=== PATIENT | male | born 1955 | race Caucasian/White ===

== ENCOUNTER → 2017-05-02 | Outpatient (CLI) | payer BC ==
[2016-05-08 15:41] VITALS: BP 183/80
--- NOTE | 2017-05-02 10:42 | RAD ---
Indication: Left renal malignant tumor removed in 2017. Technique: Grayscale, color Doppler and spectral waveform images of the abdomen obtained. Comparison: CT from 05/07/2016 Findings: Visualized pancreas within normal limits. The mid aortic diameter measures 1.9 cm and is within normal limits. Mild diffuse atherosclerotic disease of the abdominal aorta are noted. IVC is patent. No gallstones. No pericholecystic fluid or gallbladder wall thickening. Main portal vein is patent with hepatopedal flow. CBD measures 5 mm and is within normal limits. The right kidney measures 12 cm in length without evidence of hydronephrosis. The left kidney measures 10 cm in length without evidence of hydronephrosis. No left renal mass. The spleen measures 10 cm in longest dimension and is normal in size. Liver measures 17 cm in craniocaudal dimension and show no focal lesion. Impression: No sonographic evidence of left renal mass. Contrast-enhanced CT or MRI abdomen is a more sensitive modality for surveillance.
--- NOTE | 2017-05-02 11:01 | RAD ---
Indication: Cough for a few months, smoker. Technique: Two-view chest radiograph was obtained and compared to a study from November 03, 2016. Findings: The lungs are clear. There is no pleural effusion. Mild hilar prominence had similar appearance year ago. There is atheromatous disease in the thoracic aorta. There are mild degenerative changes in the spine. Impression: No acute thoracic findings. Stable examination.
== END | disposition home or self-care (01) ==
LOC: US 09:35
PROVIDERS: ATTEND Urology
DX: R05 Cough (principal); I10 Essential (primary) hypertension; Z85.528 Personal history of other malignant neoplasm of kidney; F17.210 Nicotine dependence, cigarettes, uncomplicated
CPT/HCPCS: 71046; 76700

== ENCOUNTER → 2018-09-01 | Outpatient (CLI) | payer BC, MEDICARE, OTHER ==
[2016-05-08 15:41] VITALS: BP 183/80
--- NOTE | 2018-09-01 12:57 | RAD ---
CT CHEST WO CONTRAST Indication: Solitary pulmonary nodule Technique: Noncontrast CT imaging was performed of the chest, multiplanar reconstruction images submitted. One or more of the following individualized dose reduction techniques were utilized for this examination: 1. Automated exposure control 2. Adjustment of the mA and/or kV according to patient size 3. Use of iterative reconstruction technique. Comparison: May 07, 2016 Findings: Previously seen about 0.7 cm noncalcified right middle lobe pulmonary nodule axial image 53 series 2 is unchanged. There is emphysema with upper zone predominance including more prominent paraseptal emphysema near the right apex, to lesser degree on the left. There is no pleural or pericardial effusion or pneumothorax. There is coronary calcification. Somewhat ectatic ascending thoracic aorta about 3.8 cm is similar. There are no new significantly enlarged nodes of the chest. There may be some mild esophageal wall thickening greater distally although unchanged. There is some deformity of the superior left kidney which may be on a postsurgical basis. Major airways are patent. There is multilevel thoracic spondylosis. IMPRESSION: 1. Comparing with April 2016 exam, there is a stable 0.7 cm right middle lobe pulmonary nodule, no new pulmonary nodularity. 2. There is emphysema with upper predominance. 3. There is coronary calcification. Electronically signed by: Pranav Brandon MD (09/01/2018 12:55 PM) [email or web address]
--- NOTE | 2018-09-01 15:51 | RAD ---
ABDOMEN COMPLETE History: History of renal cell carcinoma of the left kidney Comparison: May 02, 2017 Findings: Multiple sonographic images of the abdomen are submitted. Exam is limited due to patient's body habitus and bowel gas. Pancreas is not well-visualized. There is minimal segmental visualization of the inferior vena cava. Abdominal aorta is poorly seen, estimated up to 2.6 cm distally. No focal hepatic lesion is demonstrated. Right lobe of the liver measured about 19 cm longitudinal. Gallbladder is present without intraluminal abnormality, wall thickening, pericholecystic fluid. Common bile duct is within normal limits at 0.3 cm. Right kidney measured 11.1 x 5.9 x 5.7 cm, no hydronephrosis. Left kidney measured 10.4 x 5.6 x 4.7 cm, no hydronephrosis. No discrete renal mass is demonstrated on either side. Spleen measured about 9.6 cm, granulomas present. Impression: 1. Exam is limited as stated. No discrete renal mass is demonstrated. Electronically signed by: Pranav Brandon MD (09/01/2018 3:48 PM) [email or web address]
--- NOTE | 2018-09-01 16:12 | RAD ---
LUMBAR SPINE 2-3V History: Back pain Comparison: None. Findings: 3 views of the lumbar spine are submitted. There is multilevel lumbar facet degenerative change greater inferiorly. Lumbar vertebral body stature is overall preserved. There is very mild grade 1 anterior spondylolisthesis L4-5. There is moderate to severe degenerative disc disease and vacuum phenomenon L5-S1, minimally at L4-5 and L3-4. There is atherosclerotic calcification of the abdominal aorta. Impression: 1. There is degenerative disc disease greatest L5-S1, minimally L4-5. There is mild spondylosis. There is facet degenerative change greater inferiorly of the lumbar spine. Electronically signed by: Pranav Brandon MD (09/01/2018 4:09 PM) [email or web address]
== END | disposition home or self-care (01) ==
LOC: US 12:25
PROVIDERS: ATTEND Family Medicine
DX: J43.8 Other emphysema (principal); R91.1 Solitary pulmonary nodule; I25.10 Atherosclerotic heart disease of native coronary artery without angina pectoris; I77.810 Thoracic aortic ectasia; I70.0 Atherosclerosis of aorta; M51.37 Other intervertebral disc degeneration, lumbosacral region; M43.16 Spondylolisthesis, lumbar region; M47.815 Spondylosis without myelopathy or radiculopathy, thoracolumbar region; Z85.528 Personal history of other malignant neoplasm of kidney
CPT/HCPCS: 71250; 72100; 76700

== ENCOUNTER → 2019-09-10 | Outpatient (CLI) | payer MEDICARE ==
[2016-05-08 15:41] VITALS: BP 183/80
--- NOTE | 2019-09-10 15:26 | RAD ---
Two-view left clavicle HISTORY: Left clavicle pain. The left clavicle appears intact without evidence of fracture or aggressive bone destruction. No evidence of dislocation. Other visualized bones appear intact. Glenohumeral joint is grossly intact. Note is made of anchor screws at the humeral head. IMPRESSION: No evidence of acute radiographic abnormality. Electronically signed by: Luis Alberto Iglesias MD (09/10/2019 3:23 PM) [id number]
== END | disposition home or self-care (01) ==
LOC: PMG 14:23
PROVIDERS: ATTEND Physician Assistant
DX: M25.512 Pain in left shoulder (principal)
CPT/HCPCS: 73000

== ENCOUNTER → 2019-09-29 | Outpatient (CLI) | payer MEDICARE ==
[2016-05-08 15:41] VITALS: BP 183/80
--- NOTE | 2019-09-29 15:17 | RAD ---
Examination: CERVICAL SPINE 2-3V History: Reason: NECK PAIN / Spl. Instructions: / History: Comparison/Correlation: None Findings: A total of 5 images of the cervical spine were obtained. Limited lordosis of the cervical spine noted. Mild to moderate C5-6 and C6-7 disc space narrowing evident. Spurring is noted along the lower cervical spine. Dens and lateral masses are unremarkable. Lung apices are partially visualized and unremarkable. Vertebral body heights are adequate. Raeford sutures are noted involving a humeral head on the lateral view. Impression: Mild to moderate disc space narrowing of the lower cervical spine. Electronically signed by: Devan Leal MD (09/29/2019 3:14 PM) [id number]
== END | disposition home or self-care (01) ==
LOC: PMG 14:28
DX: M48.02 Spinal stenosis, cervical region (principal); M40.292 Other kyphosis, cervical region; M46.02 Spinal enthesopathy, cervical region
CPT/HCPCS: 72040

== ENCOUNTER 2019-11-08 11:32 | Emergency (ER) | payer MEDICARE, OTHER ==
[~2019-11-08] VITALS: Ht 175.3 cm; Wt 113.3 kg
[2019-11-08 11:32] VITALS: BP 160/87
[2019-11-08] MEDS ORDERED: METOCLOPRAMIDE HCL 10 MG/2 ML VIAL. IVP ONE (11:45)
[2019-11-08] MEDS ORDERED: IV NORMAL SALINE 1,000ML 1,000 ML IV ONE (11:45)
[2019-11-08] MEDS ORDERED: KETOROLAC 15 MG/ML VIAL. IVP ONE (11:45)
--- NOTE | 2019-11-08 12:07 | PHYS DOC ---
Past History Past Medical History: Cancer ("left kidney mass"), Hypertension Past Surgical History: Cancer Surgery (partial left nephrectomy) Smoking: Cigarettes Alcohol Use: Heavy Drug Use: None General Adult EDM: Chief Complaint: FLANK PAIN HPI: HPI: 64-year-old male presents with report of left sided flank pain that started suddenly today. Patient does report some hematuria. Denies nausea or vomiting. Denies trauma. Denies fever or chills. Patient does report prior history of "cancerous mass" that was removed from his left kidney. Denies need for chem otherapy or radiation therapy. Patient does report taking 81 mg aspirin daily but denies other anticoagulant use. Review of Systems: Review of Systems: Constitutional: Denies fever or chills Eyes: Denies redness or eye pain HENT: Denies nasal congestion or sore throat Respiratory: Denies cough or shortness of breath Cardiovascular: Denies chest pain or palpitations GI: Denies abdominal pain, nausea, or vomiting : Denies dysuria; reports hematuria Musculoskeletal: Reports left flank pain; denies neck pain Integument: Denies rash or skin lesions Neurologic: Denies headache, focal weakness or sensory changes Complete systems were reviewed and found to be within normal limits, except as documented in this note. Current Medications: Current Meds: Current Medications Medications (Trade) Dose Ordered Sig/[facility] Start Time Stop Time Status Last Admin Dose Admin Ketorolac Tromethamine (Toradol 15mg Vial) 15 mg 1X ONCE 11/08/19 11:45 11/08/19 11:46 DC Metoclopramide HCl (Reglan Vial) 10 mg 1X ONCE 11/08/19 11:45 11/08/19 11:46 DC Sodium Chloride 1,000 ml @ 1,000 mls/hr 1X ONCE 11/08/19 11:45 11/08/19 12:44 Allergies: Allergies: Allergies Coded Allergies Type Severity Reaction Last Updated Verified No Known Drug Allergies 08/20/14 No Physical Exam: PE: Constitutional: Well developed, obese, no acute distress, non-toxic appearance HENT: Normocephalic, atraumatic Eyes: Conjunctiva normal, no discharge Neck: Normal range of motion, no tenderness, supple Lungs & Thorax: No respiratory distress, equal chest rise and fall Abdomen: Soft, no tenderness, rotund, no guarding/rebound tenderness Skin: Warm, dry, no erythema, no rash Back: No tenderness, left CVA tenderness Extremities: No tenderness, ROM intact, no edema Neurologic: Alert and oriented X 3, no focal deficits noted Psychologic: Affect normal, judgment normal Current Patient Data: Vital Signs: Vital Signs Date Time Temp Pulse Resp B/P (MAP) Pulse Ox O2 Delivery O2 Flow Rate FiO2 11/08/19 11:32 58 22 160/87 (111) 94 Room Air EKG: EKG: [] Radiology/Procedures: Radiology/Procedures: PROCEDURE: CT ABDOMEN PELVIS WO CONTRAST Examination: CT of the abdomen pelvis without contrast HISTORY: History of left flank pain COMPARISON: None available TECHNIQUE: Axial CT images of the chest were performed without contrast. Coronal and sagittal reformats are performed Exposure: One or more of the following individualized dose reduction techniques were utilized for this examination: 1. Automated exposure control 2. Adjustment of the mA and/or kV according to patient size 3. Use of iterative reconstruction technique FINDINGS: The bibasilar lungs are clear. No evidence of free air identified in the abdomen. The evaluation of the solid organs is limited due to lack of IV contrast. The evaluation of bowel is limited due to lack of oral contrast. The visualized noncontrasted liver demonstrates mild decreased attenuation likely hepatic steatosis. The spleen, adrenals grossly appears unremarkable. Gallbladder is mildly distended. The stomach is mildly distended. The visualized pancreas grossly appears unremarkable. Few air distended small bowel loops identified in the left lower quadrant of the abdomen. The appendix is normal. Feces and gas noted in the colon. Sigmoid colon diverticulosis identified. Probable changes of partial left nephrectomy with tiny subcentimeter cysts or cystic lesions identified in the left kidney. No evidence of hydronephrosis. Urinary bladder is mildly distended. There is a 2.8 cm hyperdensity identified in the urinary bladder abutting the right posterior lateral wall with mild thickened appearance of the anterior wall of the urinary bladder. Moderate aortic atherosclerosis. Moderate degenerative changes thoracolumbar spine. IMPRESSION: 1. 2.8 cm hyperdensity identified in the urinary bladder within the bladder likely mass/neoplasm or thrombus. Cystoscopic evaluation is recommended. 2. Changes of partial left nephrectomy. Tiny subcentimeter cysts or cystic lesions left kidney. Nonemergent ultrasound follow-up can be considered. 3. Fluid distended small bowel loops left lower quadrant of the abdomen, nonspecific could be partial small bowel obstruction or mild enteritis. 4. Mild hepatic steatosis. Electronically signed by: Rubio Vásquez MD (11/08/2019 12:20 PM) [id number] Course & Med Decision Making: Course & Med Decision Making Pertinent Labs and Imaging studies reviewed. (See chart for details) Patient with past medical history of left-sided renal mass status post surgical excision presents with 1 day history of left flank pain with associated hematuria. Pain addressed. IV fluid hydration provided. Labs obtained and posted to chart. H/H stable. Creat stable. UA with signs of hematuria. CT abdomen/pelvis with concern for bladder wall mass vs hematoma. Given history of kidney cancer cannot exclude bladder cancer. Patient reports previous urologist was in [place]. CT also reports some abdominal abnormalities however patient denies any nausea or vomiting or abdominal pain. A copy of CT report and disc containing CT imaging provided to patient to give to his urologist in [place]. Patient stable for discharge with outpatient follow-up with PCP/Urologist. Discussed findings and plan with patient, who acknowledges understanding and agreement. Alejandro Disclaimer: Alejandro Disclaimer: This electronic medical record was generated, in whole or in part, using a voice recognition dictation system. Departure Departure: Impression: Primary Impression: Hematuria Qualified Codes: R31.9 - Hematuria, unspecified Additional Impressions: Mass of urinary bladder Flank pain Disposition: HOME/RESIDENCE PRIOR TO ADM Condition: STABLE Referrals: DORA BOSTON (PCP) Patient Instructions: Bladder Cancer, Flank Pain, [id number], Hematuria, Adult Additional Instructions: There is concern given your history of kidney cancer that you might have an area on your bladder that may be a recurrence of your previous cancer. Your laboratory data and vital signs are otherwise stable. Please call your urologist in [place] that previously treated your kidney cancer on Saturday for outpatient follow-up and evaluation. A copy of your CT results as well as images was provided. Please take these with you to your appointment. Scripts Tramadol Hcl (TRAMADOL HCL) 50 Mg Tablet 50 MG PO PRN Q6HRS PRN for PAIN, #14 TAB Prov: STEVE DEL VALLE DO 11/08/19 Justification of Admission: Justification of Admission: Justification of Admission Dx: N/A STEVE DEL VALLE DO Nov 08, 2019 12:07
[2019-11-08 12:15] LABS: BASO # 0.1 x10^3/uL (0.0-0.2); BASO % 1 % (0-3); EOS # 0.1 x10^3/uL (0.0-0.7); EOS % 1 % (0-3); HEMATOCRIT 46.6 % (39.0-53.0); HEMOGLOBIN 15.5 g/dL (13.0-17.5); LYMPH # 2.1 x10^3/uL (1.0-4.8); LYMPH % 18 % (24-48); MEAN CORPUSCULAR HEMOGLOBIN 31 pg (25-35); MEAN CORPUSCULAR HGB CONC 33 g/dL (31-37); MEAN CORPUSCULAR VOLUME 94 fL (79-100); MONO # 1.1 x10^3/uL (0.0-1.1); MONO % 10 % (0-9); NEUT % 70 % (31-73); PLATELET COUNT 244 x10^3/uL (140-400); RED BLOOD COUNT 4.98 x10^6/uL (4.30-5.70); RED CELL DISTRIBUTION WIDTH 14.5 % (11.5-14.5); WHITE BLOOD COUNT 11.4 x10^3/uL (4.0-11.0)
[2019-11-08 12:21] LABS: CREATININE 1.1 mg/dL (0.7-1.3); POTASSIUM 4.3 mmol/L (3.5-5.1)
--- NOTE | 2019-11-08 12:22 | RAD ---
Examination: CT of the abdomen pelvis without contrast HISTORY: History of left flank pain COMPARISON: None available TECHNIQUE: Axial CT images of the chest were performed without contrast. Coronal and sagittal reformats are performed Exposure: One or more of the following individualized dose reduction techniques were utilized for this examination: 1. Automated exposure control 2. Adjustment of the mA and/or kV according to patient size 3. Use of iterative reconstruction technique FINDINGS: The bibasilar lungs are clear. No evidence of free air identified in the abdomen. The evaluation of the solid organs is limited due to lack of IV contrast. The evaluation of bowel is limited due to lack of oral contrast. The visualized noncontrasted liver demonstrates mild decreased attenuation likely hepatic steatosis. The spleen, adrenals grossly appears unremarkable. Gallbladder is mildly distended. The stomach is mildly distended. The visualized pancreas grossly appears unremarkable. Few air distended small bowel loops identified in the left lower quadrant of the abdomen. The appendix is normal. Feces and gas noted in the colon. Sigmoid colon diverticulosis identified. Probable changes of partial left nephrectomy with tiny subcentimeter cysts or cystic lesions identified in the left kidney. No evidence of hydronephrosis. Urinary bladder is mildly distended. There is a 2.8 cm hyperdensity identified in the urinary bladder abutting the right posterior lateral wall with mild thickened appearance of the anterior wall of the urinary bladder. Moderate aortic atherosclerosis. Moderate degenerative changes thoracolumbar spine. IMPRESSION: 1. 2.8 cm hyperdensity identified in the urinary bladder within the bladder likely mass/neoplasm or thrombus. Cystoscopic evaluation is recommended. 2. Changes of partial left nephrectomy. Tiny subcentimeter cysts or cystic lesions left kidney. Nonemergent ultrasound follow-up can be considered. 3. Fluid distended small bowel loops left lower quadrant of the abdomen, nonspecific could be partial small bowel obstruction or mild enteritis. 4. Mild hepatic steatosis. Electronically signed by: Rubio Vásquez MD (11/08/2019 12:20 PM) [id number]
[2019-11-08 12:26] LABS: BACTERIA,URINE 0 /HPF (0-FEW); CLARITY,URINE TURBID; COLOR,URINE BROWN; RBC,URINE TNTC /HPF (0-2)
[2019-11-08 12:27] LABS: ALBUMIN 3.7 g/dL (3.4-5.0); ALBUMIN/GLOBULIN RATIO 0.9 (1.0-1.7); MAGNESIUM 2.1 mg/dL (1.8-2.4); TOTAL BILIRUBIN 0.6 mg/dL (0.2-1.0); TOTAL PROTEIN 7.6 g/dL (6.4-8.2)
[2019-11-08] MEDS ORDERED: TRAM50TA PO (12:52)
== END 2019-11-08 12:55 | disposition home or self-care (01) ==
LOC: ER 11:32
DX: N39.8 Other specified disorders of urinary system (principal); R31.9 Hematuria, unspecified; R10.9 Unspecified abdominal pain; I10 Essential (primary) hypertension; F17.210 Nicotine dependence, cigarettes, uncomplicated; F10.20 Alcohol dependence, uncomplicated; Y90.9 Presence of alcohol in blood, level not specified
CPT/HCPCS: 36415; 74176; 80053; 81001; 83690; 83735; 85025; 85610; 85730; 87086; 96374; 96375; 99284; J1885; J2765; J7030

== ENCOUNTER → 2019-12-12 | Outpatient (CLI) | payer MEDICARE ==
[~2019-12-12] MED LIST: TRAM50TA PO
== END | disposition home or self-care (01) ==
LOC: LAB 09:23
PROVIDERS: ATTEND Urology
DX: Z01.818 Encounter for other preprocedural examination (principal); Z11.59 Encounter for screening for other viral diseases; C67.9 Malignant neoplasm of bladder, unspecified
CPT/HCPCS: U0003-CS

== ENCOUNTER 2020-03-03 09:51 | Emergency (ER) | payer MEDICARE ==
[~2020-03-03] VITALS: Ht 175.3 cm; Wt 113.3 kg
--- NOTE | 2020-03-03 09:54 | PHYS DOC ---
Past History Past Medical History: CAD, Cancer (Bladder currently on chemotherapy), Hypertension Past Surgical History: Cancer Surgery (ON BCG TREATMENTR) Smoking: Cigarettes Alcohol Use: Heavy Drug Use: None Adult General Chief Complaint Chief Complaint: Dyspnea HPI HPI Patient is a 64-year-old male who presents for exertional dyspnea. Reports this problem has been ongoing for greater than 1 week without any known inciting event and/or trauma. Patient reports history of cardiovascular disease with prior PCI, he is not on any aspirin daily, it is unknown if he has had any cardiac stents but admits an MT in the past. Also admits to be a heavy smoker, states he has been cutting down, no sputum production, increased sputum quantity or change in purulence at this time. Patient reports his substernal chest press ure gets worse with exertion and is relieved with relaxation/rest. He denies any major weight changes at this time, no edema, no fever URI-like symptoms. He has not been around anyone with known COVID-19 contact. Patient does admit to history of hypertension has been taking his medications daily, also admits to unknown stage of bladder cancer for which she started an unknown chemotherapy agent 3 weeks ago. I later called patient's Urologist and confirmed it was localized BCG Review of Systems Review of Systems Fourteen body systems of review of systems have been reviewed. See HPI for pertinent positives and negative responses, other acevedo all other systems are negative, non-pertinent or non-contributory Allergies Allergies Allergies Coded Allergies Type Severity Reaction Last Updated Verified No Known Drug Allergies 08/20/14 No Physical Exam Physical Exam Constitutional: Well developed, well nourished, no acute distress, non-toxic appearance. HENT: Normocephalic, atraumatic, bilateral external ears normal, oropharynx moist, no oral exudates, nose normal. Eyes: PERRLA, EOMI, conjunctiva normal, no discharge. Neck: Normal range of motion, no tenderness, supple, no stridor. Cardiovascular: Heart rate regular, sinus rhythm, no murmurs rubs or gallops Lungs & Thorax: Bilateral breath sounds clear to auscultation Abdomen: Bowel sounds normal, soft, no tenderness, no masses, no pulsatile masses. Nonsurgical abdomen, no peritoneal signs Skin: Warm, dry, no erythema, no rash. Back: No tenderness, no CVA tenderness. Extremities: No tenderness, no cyanosis, no clubbing, ROM intact, no edema. Neurologic: Alert and oriented X 3, grossly normal motor & sensory function, no focal deficits noted. Psychologic: Affect normal, judgement normal, mood normal. Current Patient Data Vital Signs Vital Signs Date Time Temp Pulse Resp B/P (MAP) Pulse Ox O2 Delivery O2 Flow Rate FiO2 03/03/20 11:32 56 16 155/68 (97) 96 Room Air 03/03/20 09:57 98.1 Lab Results Laboratory Tests Test 03/03/20 10:08 White Blood Count 10.2 x10^3/uL (4.0-11.0) Red Blood Count 4.94 x10^6/uL (4.30-5.70) Hemoglobin 15.1 g/dL (13.0-17.5) Hematocrit 46.0 % (39.0-53.0) Mean Corpuscular Volume 93 fL (79-100) Mean Corpuscular Hemoglobin 31 pg (25-35) Mean Corpuscular Hemoglobin Concent 33 g/dL (31-37) Red Cell Distribution Width 13.9 % (11.5-14.5) Platelet Count 239 x10^3/uL (140-400) Neutrophils (%) (Auto) 64 % (31-73) Lymphocytes (%) (Auto) 21 % (24-48) Monocytes (%) (Auto) 11 % (0-9) Eosinophils (%) (Auto) 2 % (0-3) Basophils (%) (Auto) 1 % (0-3) Neutrophils # (Auto) 6.5 x10^3uL (1.8-7.7) Lymphocytes # (Auto) 2.1 x10^3/uL (1.0-4.8) Monocytes # (Auto) 1.2 x10^3/uL (0.0-1.1) Eosinophils # (Auto) 0.2 x10^3/uL (0.0-0.7) Basophils # (Auto) 0.1 x10^3/uL (0.0-0.2) Sodium Level 136 mmol/L (136-145) Potassium Level 4.9 mmol/L (3.5-5.1) Chloride Level 99 mmol/L (98-107) Carbon Dioxide Level 28 mmol/L (21-32) Anion Gap 9 (6-14) Blood Urea Nitrogen 16 mg/dL (8-26) Creatinine 0.9 mg/dL (0.7-1.3) Estimated GFR (Cockcroft-Gault) 84.4 BUN/Creatinine Ratio 18 (6-20) Glucose Level 99 mg/dL (70-99) Calcium Level 9.5 mg/dL (8.5-10.1) Total Bilirubin 0.3 mg/dL (0.2-1.0) Aspartate Amino Transf (AST/SGOT) 11 U/L (15-37) Alanine Aminotransferase (ALT/SGPT) 20 U/L (16-63) Alkaline Phosphatase 90 U/L (46-116) Troponin I Quantitative < 0.017 ng/mL (0-0.055) HN-Ahd-E-Type Natriuretic Peptide 953 pg/mL (0-124) Total Protein 7.1 g/dL (6.4-8.2) Albumin 3.6 g/dL (3.4-5.0) Albumin/Globulin Ratio 1.0 (1.0-1.7) EKG EKG EKG ordered and interpreted by myself at 1018 hrs. as intraventricular rhythm at 55 bpm, QRS 126, QTc 404, left axis deviation, no STEMI. Poor quality EKG due to patient artifact and PVC disruption Radiology/Procedures Radiology/Procedures PROCEDURE: PORTABLE CHEST 1V EXAM: CHEST 1 VIEW History: Chest pain COMPARISON: 05/02/2017 TECHNIQUE: Single portable radiograph of the chest FINDINGS: The cardiac silhouette is unremarkable. The lungs are clear bilaterally. The costophrenic sulci are clear and well demarcated. IMPRESSION: No radiographic evidence of an acute cardiopulmonary process. Electronically signed by: Rubio Vásquez MD (03/03/2020 10:38 AM) [id number] Heart Score HEART Score for Chest Pain: HEART Score for Chest Pain Response (Comments) Value History Slighlty/Non-Suspicious 0 ECG Normal 0 Age > 65 2 Risk Factors >3 Risk Factors or Hx CAD 2 Troponin < Normal Limit 0 Total 4 Risk Factors: Risk Factors: DM, Current or recent (<one month) smoker, HTN, HLP, family history of CAD, obesity. Risk Scores: Risk Factors: DM, Current or recent (<one month) smoker, HTN, HLP, family history of CAD, obesity. Course & Med Decision Making Course & Med Decision Making Pertinent Labs and Imaging studies reviewed. (See chart for details) Discussed most likely diagnoses of bronchitis without acute COPD exacerbation. Patient responded to ED intervention involving Duoneb treatment and Prednisone without improvement in presenting symptoms. With this said, I disclosed I couldn't definitively rule out other causes such as ACS, Pneumothorax, Pneumonia, Pulmonary Embolus, Tamponade, Aortic Dissection or other emergent problem as a cause for this presentation. Given patient's comorbidities I did recommend admission for cardiac observation and continued medical management but patient deferred. He has access to PCP and his biomedical specialist whom he plans to follow up with JAMARI Strict return precautions discussed with good understanding by patient, all questions and concerns addressed prior to ED departure in stable condition Dragon Disclaimer Dragon Disclaimer This electronic medical record was generated, in whole or in part, using a voice recognition dictation system. Departure Departure: Impression: Primary Impression: Bronchitis Additional Impressions: COPD (chronic obstructive pulmonary disease) Dyspnea on exertion Disposition: 01 DC HOME SELF CARE/HOMELESS Condition: STABLE Referrals: DORA BOSTON (PCP) Patient Instructions: Acute Bronchitis, Shortness of Breath Additional Instructions: As discussed prior to ER departure, please call your primary care physician immediately after ER departure to schedule outpatient follow-up in upcoming 1 to 7 days As discussed, your evaluated for your shortness of breath on exertion, there were no immediate surgical and/or emergent findings this visit I did disclose this might be an acute presentation more concerning pathology. We discussed potential of being admitted for cardiac observation but decision was made to discharge home with steroid treatment and close PCP follow-up Strict return precautions were given. If any concerning signs or symptoms present prior to outpatient follow-up please do not hesitate to come back for repeat evaluation Is a pleasure to take care of you and I wish you a speedy recovery! Scripts Prednisone (PREDNISONE) 20 Mg Tablet 40 MG PO DAILY for bronchitis for 5 Days, #10 TAB Prov: JOSELINE TORREZ DO 03/03/20 Problem Qualifiers JOSELINE TORREZ DO Mar 03, 2020 09:54
[2020-03-03] MEDS ORDERED: FAMOTIDINE 20 MG TABLET ONE (10:11)
[2020-03-03] MEDS ORDERED: ASPIRIN CHEWABLE 81 MG TABLET. ONE (10:12)
[2020-03-03] MEDS ORDERED: ASPIRIN CHEWABLE 81 MG TABLET. PO ONE (10:30)
[2020-03-03] MEDS ORDERED: predniSONE 20 MG TABLET PO ONE ×2 (10:30→12:00)
[2020-03-03] MEDS ORDERED: IPRATRPIUM/ALBUTEROL 0.5/2.5MG 3 ML NEBU. NEB ONE (10:30)
[2020-03-03 10:34] LABS: BASO # 0.1 x10^3/uL (0.0-0.2); BASO % 1 % (0-3); EOS # 0.2 x10^3/uL (0.0-0.7); EOS % 2 % (0-3); HEMOGLOBIN 15.1 g/dL (13.0-17.5); LYMPH # 2.1 x10^3/uL (1.0-4.8); LYMPH % 21 % (24-48); MEAN CORPUSCULAR HEMOGLOBIN 31 pg (25-35); MEAN CORPUSCULAR HGB CONC 33 g/dL (31-37); MEAN CORPUSCULAR VOLUME 93 fL (79-100); MONO # 1.2 x10^3/uL (0.0-1.1); MONO % 11 % (0-9); NEUT # 6.5 x10^3uL (1.8-7.7); NEUT % 64 % (31-73); PLATELET COUNT 239 x10^3/uL (140-400); RED BLOOD COUNT 4.94 x10^6/uL (4.30-5.70); RED CELL DISTRIBUTION WIDTH 13.9 % (11.5-14.5); WHITE BLOOD COUNT 10.2 x10^3/uL (4.0-11.0)
--- NOTE | 2020-03-03 10:41 | RAD ---
EXAM: CHEST 1 VIEW History: Chest pain COMPARISON: 05/02/2017 TECHNIQUE: Single portable radiograph of the chest FINDINGS: The cardiac silhouette is unremarkable. The lungs are clear bilaterally. The costophrenic sulci are clear and well demarcated. IMPRESSION: No radiographic evidence of an acute cardiopulmonary process. Electronically signed by: Rubio Vásquez MD (03/03/2020 10:38 AM) [id number]
[2020-03-03 10:45] LABS: CALCIUM 9.5 mg/dL (8.5-10.1); CREATININE 0.9 mg/dL (0.7-1.3); GFR 84.4; POTASSIUM 4.9 mmol/L (3.5-5.1)
[2020-03-03 10:58] LABS: ALBUMIN 3.6 g/dL (3.4-5.0); TOTAL BILIRUBIN 0.3 mg/dL (0.2-1.0); TOTAL PROTEIN 7.1 g/dL (6.4-8.2)
[2020-03-03 11:32] VITALS: BP 155/68
[2020-03-03] MEDS ORDERED: PRED20TA PO (11:48)
--- NOTE | 2020-03-04 19:30 | EKG ---
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
== END 2020-03-03 12:08 | disposition home or self-care (01) ==
LOC: ER 09:51
DX: J44.9 Chronic obstructive pulmonary disease, unspecified (principal); R06.09 Other forms of dyspnea; R07.89 Other chest pain; I11.9 Hypertensive heart disease without heart failure; F17.210 Nicotine dependence, cigarettes, uncomplicated; F10.10 Alcohol abuse, uncomplicated; Z85.9 Personal history of malignant neoplasm, unspecified; Z98.890 Other specified postprocedural states
CPT/HCPCS: 36415; 71045; 80053; 83880; 84484; 85025; 93005; 94640; 99285; J7512

== ENCOUNTER 2020-03-22 08:00 | Emergency (ER) | payer MEDICARE ==
[~2020-03-22] VITALS: Ht 175.3 cm; Wt 113.3 kg
[2020-03-22 08:00] VITALS: BP 152/71
[~2020-03-22 08:00] MED LIST changes: +PRED20TA PO
[2020-03-22] MEDS ORDERED: FLUORESCEIN 1MG EYE STRIP. ONE (08:17)
[2020-03-22] MEDS ORDERED: TETRACAINE 0.5% OPHTH SOLUTION 4ML BOTTLE. ONE (08:17)
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
== END 2020-03-22 13:15 | disposition home or self-care (01) ==
LOC: ER 08:00
DX: H44.001 Unspecified purulent endophthalmitis, right eye (principal); I25.10 Atherosclerotic heart disease of native coronary artery without angina pectoris; J44.9 Chronic obstructive pulmonary disease, unspecified; I10 Essential (primary) hypertension; I25.2 Old myocardial infarction; F17.210 Nicotine dependence, cigarettes, uncomplicated
CPT/HCPCS: 70480; 99284-25

== ENCOUNTER → 2020-06-28 | Outpatient (CLI) | payer MEDICARE ==
--- NOTE | 2020-06-28 13:38 | RAD ---
EXAM: Left shoulder, 3 views. HISTORY: Fall. Pain. COMPARISON: None. FINDINGS: 3 views of the left shoulder obtained. There are surgical anchors within the humeral head. There is no acute fracture, dislocation or subluxation. There is a tiny lucency within the acromion w hich is likely developmental. IMPRESSION: No acute osseous finding. Surgical anchors within the humeral head. Electronically signed by: Amy Longoria MD (06/28/2020 1:36 PM) [id number]
== END ==
LOC: PMG 11:39
PROVIDERS: ATTEND Physician Assistant
DX: S43.52XA Sprain of left acromioclavicular joint, initial encounter (principal); S49.92XA Unspecified injury of left shoulder and upper arm, initial encounter; X58.XXXA Exposure to other specified factors, initial encounter; Y93.89 Activity, other specified; Y92.89 Other specified places as the place of occurrence of the external cause; Y99.8 Other external cause status
CPT/HCPCS: 73030

== ENCOUNTER → 2020-09-21 | Outpatient (CLI) | payer MEDICARE ==
--- NOTE | 2020-09-21 17:07 | RAD ---
XR SHOULDER_LEFT 2+ VIEWS 09/21/2020 2:10 PM INDICATION: Left shoulder pain COMPARISON: 06/28/2020 TECHNIQUE: 3 views the left shoulder are provided FINDINGS/ IMPRESSION: Left humeral surgical anchors are present. There is no acute fracture or dislocation. Mild glenohumer al osteoarthrosis with joint space narrowing. Mild acromioclavicular osteoarthrosis with joint space narrowing marginal osteophytosis. Bone mineralization is within normal limits. Regional soft tissues are within normal limits. There is no soft tissue gas or osseous erosion. No radiopaque foreign body. Electronically signed by: Hyacinth Mcdaniels MD (09/21/2020 5:05 PM) [id number]
== END ==
LOC: RAD 14:00
PROVIDERS: ATTEND Orthopaedic Surgery
DX: M25.512 Pain in left shoulder (principal)
CPT/HCPCS: 73030

== ENCOUNTER 2020-11-21 08:54 | Emergency (ER) | payer MEDICARE, OTHER ==
[~2020-11-21] VITALS: Ht 175.3 cm; Wt 111.3 kg
--- NOTE | 2020-11-21 09:16 | EKG ---
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
--- NOTE | 2020-11-21 09:25 | PHYS DOC ---
Past History Past Medical History: CAD, Cancer, COPD, Hypertension, [place] Past Surgical History: Cancer Surgery Additional Past Surgical Histo: kidney- tumor removal, bladder cancer Smoking: Cigarettes Alcohol Use: Occasionally Drug Use: None General Adult EDM: Chief Complaint: CHEST PAIN HPI: HPI: Patient is a 65-year-old male coming in for intermittent chest pain. Describes the pain as sharp and radiating to his left arm. Patient states he is also been having neck pain and "numbness" in his fingers. States he has had some nausea but no vomiting. Patient states he has a cardiac history of "heart attacks in the past" that were diagnosed after the fact. Patient with history of hypertension dyslipidemia states he is compliant with medications. Smokes tobacco, states he drinks every other day. Has not had his Covid vaccines Review of Systems: Review of Systems: All other systems within normal limits except for as noted in the HPI Allergies: Allergies: Allergies Coded Allergies Type Severity Reaction Last Updated Verified No Known Drug Allergies 08/20/14 No Physical Exam: PE: Constitutional: Well developed, well nourished, no acute distress, non-toxic appearance. [] HENT: Normocephalic, atraumatic, bilateral external ears normal, nose normal. [] Eyes: PERRLA, conjunctiva normal, no discharge. [] Neck: No rigidity, supple, no stridor. [] Cardiovascular: Regular rate and rhythm, brisk cap refill [] Lungs & Thorax: Non labored symmetric respirations, no tachypnea or respiratory distress [] Abdomen: Soft, nondistended. Skin: Warm, dry, no erythema, no rash. [] Back: Unremarkable Extremities: No deformities, range of motion grossly intact, no lower extremity edema [] Neurologic: Alert and oriented X 3, no focal deficits noted. [] Psychologic: Affect normal, judgement normal, mood normal. [] Current Patient Data: Vital Signs: Vital Signs Date Time Temp Pulse Resp B/P (MAP) Pulse Ox O2 Delivery O2 Flow Rate FiO2 11/21/20 09:02 98.6 65 20 137/69 95 Room Air EKG: EKG: Sinus rhythm, heart rate 65 bpm, left axis deviation, intraventricular block. No significant changes from EKG dated 03-03-20 [] Radiology/Procedures: Radiology/Procedures: [address] [address] IMAGING REPORT Signed PATIENT: CRISTIAN JAMESON ACCOUNT: [id number] : 1955 LOCATION: ER AGE: 65 SEX: M EXAM STATUS: REG ER ORD. PHYSICIAN: BARNEY FRANKLIN MD REASON: chest pain PROCEDURE: CT ANGIOGRAPHY CHEST EXAM: CT chest with contrast - pulmonary embolus protocol CLINICAL HISTORY: Chest pain COMPARISON: 09/01/2018, 05/07/2016 TECHNIQUE: CT of the chest following the administration of intravenous contrast during the pulmonary arterial phase. Axial, coronal and sagittal reformatted images were generated including MIP images. ---PQRS compliance statement - One or more of the following individualized dose reduction techniques were utilized for this study: 1. Automated exposure control 2. Adjustment of the mA and/or kV according to patient size 3. Use of iterative reconstruction technique--- FINDINGS: CHEST: Diagnostic quality: Suboptimal. Pulmonary emboli: No pulmonary emboli to the level of the distal segmental branches. More peripheral vessels are not well assessed. Right heart strain: None Pulmonary arteries: Normal in caliber. Heart is not enlarged. No pericardial effusion. No pleural effusion or pneumo thorax. Emphysematous changes are seen. 6 mm right middle lobe lung nodule stable to 05/07/2016. 2 mm middle lobe lung nodule is also stable to 05/07/2016. Minimal dependent opacities right greater than left lower lobes likely scarring/atelectasis. No lobar consolidation. No abdominal or pelvic lymphadenopathy. No axillary lymphadenopathy. Visualized Upper abdomen: Chronic changes in the left perinephric region likely postprocedural. Bones: No aggressive osseous lesion is seen. Degenerative changes of the spine are noted. IMPRESSION: 1. No pulmonary emboli to the level of the distal segmental branches. More peripheral vessels are not well assessed. 2. Lung nodules, measuring up to 6 mm, stable to 05/07/2016. Electronically signed by: Renard Smith MD (11/21/2020 10:53 AM) [id number] DICTATED AND SIGNED BY: RENARD SMITH MD DATE: 11/21/20 1044 CC: BARNEY FRANKLIN MD; DORA BOSTON ~MTH0 0 [] Heart Score: C/O Chest Pain: Yes HEART Score for Chest Pain: HEART Score for Chest Pain Response (Comments) Value History Slighlty/Non-Suspicious 0 ECG Normal 0 Age > 65 2 Risk Factors >3 Risk Factors or Hx CAD 2 Troponin < Normal Limit 0 Total 4 Risk Factors: Risk Factors: DM, Current or recent (<one month) smoker, HTN, HLP, family history of CAD, obesity. Risk Scores: Score 0 - 3: 2.5% MACE over next 6 weeks - Discharge Home Score 4 - 6: 20.3% MACE over next 6 weeks - Admit for Clinical Observation Score 7 - 10: 72.7% MACE over next 6 weeks - Early Invasive Strategies Course & Med Decision Making: Course & Med Decision Making Pertinent Labs and Imaging studies reviewed. (See chart for details) Work-up unremarkable, Trope negative x2. Patient anxious to leave. Discussed follow-up and return precautions. [] Dragon Disclaimer: Dragon Disclaimer: This electronic medical record was generated, in whole or in part, using a voice recognition dictation system. Departure Departure: Impression: Primary Impression: Chest pain Disposition: HOME / SELF CARE / HOMELESS Condition: STABLE Referrals: DORA BOSTON (PCP) Patient Instructions: Smoking Cessation BARNEY FRANKLIN MD Nov 21, 2020 09:25
[2020-11-21 09:30] LABS: BASO # 0.1 x10^3/uL (0.0-0.2); BASO % 1 % (0-3); EOS # 0.1 x10^3/uL (0.0-0.7); EOS % 1 % (0-3); HEMATOCRIT 44.7 % (39.0-53.0); HEMOGLOBIN 14.8 g/dL (13.0-17.5); LYMPH # 1.8 x10^3/uL (1.0-4.8); LYMPH % 14 % (24-48); MEAN CORPUSCULAR HEMOGLOBIN 30 pg (25-35); MEAN CORPUSCULAR HGB CONC 33 g/dL (31-37); MEAN CORPUSCULAR VOLUME 92 fL (79-100); MONO # 1.1 x10^3/uL (0.0-1.1); MONO % 9 % (0-9); NEUT # 9.4 x10^3uL (1.8-7.7); NEUT % 75 % (31-73); PLATELET COUNT 246 x10^3/uL (140-400); RED BLOOD COUNT 4.86 x10^6/uL (4.30-5.70); RED CELL DISTRIBUTION WIDTH 14.5 % (11.5-14.5); WHITE BLOOD COUNT 12.5 x10^3/uL (4.0-11.0)
[2020-11-21 09:37] LABS: CALCIUM 8.9 mg/dL (8.5-10.1); CREATININE 1.2 mg/dL (0.7-1.3); GFR 60.4; POTASSIUM 4.5 mmol/L (3.5-5.1)
[2020-11-21 09:49] LABS: ALBUMIN 3.9 g/dL (3.4-5.0); ALBUMIN/GLOBULIN RATIO 1.1 (1.0-1.7); MAGNESIUM 2.1 mg/dL (1.8-2.4); PHOSPHORUS 3.6 mg/dL (2.6-4.7); TOTAL BILIRUBIN 0.5 mg/dL (0.2-1.0); TOTAL PROTEIN 7.3 g/dL (6.4-8.2)
--- NOTE | 2020-11-21 09:59 | RAD ---
EXAM: Chest, 2 views. HISTORY: Chest pain. COMPARISON: 03/03/2020 FINDINGS: 2 views of the chest are obtained. There is no infiltrate, pleural effusion or pneumothorax . The heart is normal in size. IMPRESSION: No acute pulmonary finding. Electronically signed by: Amy Longoria MD (11/21/2020 9:56 AM) [id number]
[2020-11-21 10:09] LABS: BARBITURATES NEG (NEG); BENZODIAZEPINES NEG (NEG); CANNABINOIDS NEG (NEG); COCAINE NEG (NEG); METHADONE NEG (NEG); OPIATES NEG (NEG); PHENCYCLIDINE NEG (NEG)
[2020-11-21 10:15] LABS: AMPHETAMINE/METHAMPHETAMINE NEG (NEG)
[2020-11-21] MEDS ORDERED: IOHEXOL 350 MG/ML 100 ML VIAL. IV ONE (10:15)
[2020-11-21 10:25] LABS: BILIRUBIN,URINE NEG (NEG); CLARITY,URINE CLEAR; COLOR,URINE YELLOW; GLUCOSE,URINE NEG (NEG); NITRITE,URINE NEG (NEG)
[2020-11-21 10:26] LABS: BACTERIA,URINE 0 /HPF (0-FEW); RBC,URINE 0 /HPF (0-2)
--- NOTE | 2020-11-21 10:55 | RAD ---
EXAM: CT chest with contrast - pulmonary embolus protocol CLINICAL HISTORY: Chest pain COMPARISON: 09/01/2018, 05/07/2016 TECHNIQUE: CT of the chest following the administration of intravenous contrast during the pulmonary arterial phase. Axial, coronal and sagittal reformatted images were generated including MIP images. ---PQRS compliance statement - One or more of the following individualized dose reduction techniques were utilized for this study: 1. Automated exposure control 2. Adjustment of the mA and/or kV according to patient size 3. Use of iterative reconstruction technique--- FINDINGS: CHEST: Diagnostic quality: Suboptimal. Pulmonary emboli: No pulmonary emboli to the level of the distal segmental branches. More peripheral vessels are not well assessed. Right heart strain: None Pulmonary arteries: Normal in caliber. Heart is not enlarged. No pericardial effusion. No pleural effusion or pneumothorax. Emphysematous changes are seen. 6 mm right middle lobe lung nodule stable to 05/07/2016. 2 mm middle l obe lung nodule is also stable to 05/07/2016. Minimal dependent opacities right greater than left lower lobes likely scarring/atelectasis. No lobar consolidation. No abdominal or pelvic lymphadenopathy. No axillary lymphadenopathy. Visualized Upper abdomen: Chronic changes in the left perinephric region likely postprocedural. Bones: No aggressive osseous lesion is seen. Degenerative changes of the spine are noted. IMPRESSION: 1. No pulmonary emboli to the level of the distal segmental branches. More peripheral vessels are no t well assessed. 2. Lung nodules, measuring up to 6 mm, stable to 05/07/2016. Electronically signed by: Renard Peng MD (11/21/2020 10:53 AM) [id number]
[2020-11-21 12:03] VITALS: BP 127/81
== END 2020-11-21 12:30 | disposition home or self-care (01) ==
LOC: ER 08:54
DX: R07.89 Other chest pain (principal); M54.2 Cervicalgia; I25.10 Atherosclerotic heart disease of native coronary artery without angina pectoris; J44.9 Chronic obstructive pulmonary disease, unspecified; I10 Essential (primary) hypertension; I25.2 Old myocardial infarction; F17.210 Nicotine dependence, cigarettes, uncomplicated
CPT/HCPCS: 36415; 71046; 71275; 80053; 80307; 81001; 83735; 83880; 84100; 84484; 85025; 85379; 87086; 93005; 99285; Q9967

== ENCOUNTER 2020-12-05 08:01 | Emergency (ER) | payer OTHER, MEDICARE ==
[~2020-12-05] VITALS: Ht 175.3 cm; Wt 108.0 kg
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
[2020-12-05 08:25] VITALS: BP 152/114
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
== END 2020-12-05 09:55 | disposition home or self-care (01) ==
LOC: ER 08:01
DX: Z04.1 Encounter for examination and observation following transport accident (principal); J44.9 Chronic obstructive pulmonary disease, unspecified; I10 Essential (primary) hypertension; I25.2 Old myocardial infarction; F17.210 Nicotine dependence, cigarettes, uncomplicated
CPT/HCPCS: 70450; 72125; 99285-25

== ENCOUNTER 2020-12-29 14:34 | Emergency (ER) | payer MEDICARE, OTHER ==
[~2020-12-29] VITALS: Ht 175.3 cm; Wt 108.0 kg
--- NOTE | 2020-12-29 15:21 | PHYS DOC ---
Past History Past Medical History: High Cholesterol, Hypertension Past Surgical History: No Surgical History Additional Past Surgical Histo: kidney- tumor removal, bladder cancer Smoking: Cigarettes Alcohol Use: Occasionally Drug Use: None General Adult EDM: Chief Complaint: SHORTNESS OF BREATH HPI: HPI: Patient is a 65-year male coming in for 2 months worsening shortness of breath. Patient states he is having difficulty walking his room due to his course of breath. Says he occasionally uses his inhalers and his nebulizer with some impr ovement but has not been using them daily. Has a history of COPD and continues to smoke 12 to 13 cigarettes daily. Patient denies any chest pain. Only complaint of pain in his shoulder of chronic pain denies any fevers. Has baseline occasionally productive cough. Does not take any blood thinners. Patient states he does not have a history of heart failure but had "heart attack s" about 14 years ago, was told that he did not have any stents placed because there is too many blockages in his vessels, did not have any discussion at last about CABG Review of Systems: Review of Systems: Constitutional: Denies fever or chills Eyes: Denies change in visual acuity HENT: Denies nasal congestion or sore throat Respiratory: Denies cough or shortness of breath Cardiovascular: Denies chest pain or edema GI: Denies abdominal pain, nausea, vomiting, bloody stools or diarrhea : Denies dysuria Musculoskeletal: Denies back pain or joint pain Integument: Denies rash Neurologic: Denies headache, focal weakness or sensory changes Endocrine: Denies polyuria or polydipsia Lymphatic: Denies swollen glands Psychiatric: Denies depression or anxiety Allergies: Allergies: Allergies Coded Allergies Type Severity Reaction Last Updated Verified No Known Drug Allergies 08/20/14 No Physical Exam: PE: Constitutional: Well developed, well nourished, no acute distress, non-toxic appearance. [] HENT: Normocephalic, atraumatic, bilateral external ears normal, oropharynx moist, no oral exudates, nose normal. [] Eyes: PERRLA, EOMI, conjunctiva normal, no discharge. [] Neck: Normal range of motion, no tenderness, supple, no stridor. [] Cardiovascular:Heart rate regular rhythm, no murmur [] Lungs & Thorax: Bilateral breath sounds clear to auscultation [] Abdomen: Bowel sounds normal, soft, no tenderness, no masses, no pulsatile masses. [] Skin: Warm, dry, no erythema, no rash. [] Back: No tenderness, no CVA tenderness. [] Extremities: No tenderness, no cyanosis, no clubbing, ROM intact, no edema. [] Neurologic: Alert and oriented X 3, normal motor function, normal sensory function, no focal deficits noted. [] Psychologic: Affect normal, judgement normal, mood normal. [] Current Patient Data: Vital Signs: Vital Signs Date Time Temp Pulse Resp B/P (MAP) Pulse Ox O2 Delivery O2 Flow Rate FiO2 12/29/20 14:45 98.6 64 18 140/38 (81) 91 Room Air EKG: EKG: Sinus rhythm, heart rate 60/min, normal axis, no ST ovation depression, no ectopy. [] Radiology/Procedures: Radiology/Procedures: [address] [address] IMAGING REPORT Signed PATIENT: CRISTIAN JAMESON ACCOUNT: [id number] : 1955 LOCATION: ER AGE: 65 SEX: M EXAM STATUS: REG ER ORD. PHYSICIAN: LACEY FRANKLIN MD REASON: COPD, CHEST PAIN PROCEDURE: CHEST AP ONLY EXAM: XR CHEST 1V 12/29/2020 3:26 PM CLINICAL INDICATION: COPD, chest pain COMPARISON: Chest radiograph 11/21/2020 TECHNIQUE: AP upright view of the chest FINDINGS: The heart and mediastinum are normal. There are calcifications in the thoracic aorta. Lungs are well-expanded and clear. No consolidation, pleural effusion, or pneumothorax. Pulmonary vascularity is normal. No acute osseous abnormality. IMPRESSION: No acute cardiopulmonary abnormality. Electronically signed by: Lacey Ortega MD (12/29/2020 4:12 PM) [id number] DICTATED AND SIGNED BY: LACEY ORTEGA MD DATE: 12/29/20 161 CC: LACEY FRANKLIN MD; DORA BOSTON PA ~MTH0 0 [] Heart Score: C/O Chest Pain: No HEART Score for Chest Pain: HEART Score for Chest Pain Response (Comments) Value History Slighlty/Non-Suspicious 0 ECG Normal 0 Age > 65 2 Risk Factors 1 or 2 Risk Factors 1 Troponin < Normal Limit 0 Total 3 Risk Factors: Risk Factors: DM, Current or recent (<one month) smoker, HTN, HLP, family history of CAD, obesity. Risk Scores: Score 0 - 3: 2.5% MACE over next 6 weeks - Discharge Home Score 4 - 6: 20.3% MACE over next 6 weeks - Admit for Clinical Observation Score 7 - 10: 72.7% MACE over next 6 weeks - Early Invasive Strategies Course & Med Decision Making: Course & Med Decision Making Pertinent Labs and Imaging studies reviewed. (See chart for details) Patient does not desaturate when we walked on room air. Patient did not desat during his stay in the emergency department, oxygen stayed in the mid 90s range. Chest x-ray is clear, mild elevation in patient's BNP from previous reading. Will give referral for cardiology follow-up for possible outpatient echo. Patient states he feels better after Solu-Medrol [] Dragon Disclaimer: Dragon Disclaimer: This electronic medical record was generated, in whole or in part, using a voice recognition dictation system. Departure Departure: Impression: Primary Impression: Person under investigation for COVID-19 Additional Impression: COPD exacerbation Disposition: HOME / SELF CARE / HOMELESS Condition: STABLE Referrals: DORA BOSTON (PCP) Patient Instructions: Smoking Cessation, Tips For Success Scripts Levofloxacin (LEVOFLOXACIN) 500 Mg Tablet 1 TAB PO BID for antibiotic for 5 Days, #10 TAB Prov: LACEY FRANKLIN MD 12/29/20 Prednisone (PREDNISONE) 50 Mg Tablet 1 TAB PO DAILY for steroid, #4 TAB You received this medication in the emergency room today. You will starting your next dose tomorrow. Prov: LACEY FRANKLIN MD 12/29/20 LACEY FRANKLIN MD Dec 29, 2020 15:21
[2020-12-29] MEDS: methylPREDNISolone SOD SUCC PF 125 MG/2 ML VIAL. IV ONE (15:33)
[2020-12-29 15:58] LABS: BASO # 0.1 x10^3/uL (0.0-0.2); BASO % 1 % (0-3); EOS # 0.2 x10^3/uL (0.0-0.7); EOS % 2 % (0-3); HEMATOCRIT 44.8 % (39.0-53.0); HEMOGLOBIN 14.7 g/dL (13.0-17.5); LYMPH # 1.4 x10^3/uL (1.0-4.8); LYMPH % 16 % (24-48); MEAN CORPUSCULAR HEMOGLOBIN 31 pg (25-35); MEAN CORPUSCULAR HGB CONC 33 g/dL (31-37); MEAN CORPUSCULAR VOLUME 94 fL (79-100); MONO % 12 % (0-9); NEUT # 5.9 x10^3uL (1.8-7.7); NEUT % 69 % (31-73); PLATELET COUNT 230 x10^3/uL (140-400); RED BLOOD COUNT 4.79 x10^6/uL (4.30-5.70); RED CELL DISTRIBUTION WIDTH 15.9 % (11.5-14.5); WHITE BLOOD COUNT 8.6 x10^3/uL (4.0-11.0)
--- NOTE | 2020-12-29 16:14 | RAD ---
EXAM: XR CHEST 1V 12/29/2020 3:26 PM CLINICAL INDICATION: COPD, chest pain COMPARISON: Chest radiograph 11/21/2020 TECHNIQUE: AP upright view of the chest FINDINGS: The heart and mediastinum are normal. There are calcifications in the thoracic aorta. Lung s are well-expanded and clear. No consolidation, pleural effusion, or pneumothorax. Pulmonary vascu larity is normal. No acute osseous abnormality. IMPRESSION: No acute cardiopulmonary abnormality. Electronically signed by: Lacey Ortega MD (12/29/2020 4:12 PM) [id number]
[2020-12-29 16:24] LABS: CALCIUM 8.7 mg/dL (8.5-10.1); CREATININE 0.9 mg/dL (0.7-1.3); GFR 84.2; POTASSIUM 4.6 mmol/L (3.5-5.1)
[2020-12-29 16:36] LABS: ALBUMIN 3.4 g/dL (3.4-5.0); ALBUMIN/GLOBULIN RATIO 1.1 (1.0-1.7); TOTAL BILIRUBIN 0.2 mg/dL (0.2-1.0); TOTAL PROTEIN 6.4 g/dL (6.4-8.2)
--- NOTE | 2020-12-29 16:44 | EKG ---
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
[2020-12-29] MEDS ORDERED: LEVO500T8 PO (17:20)
[2020-12-29] MEDS ORDERED: PRED50TA PO (17:20)
[2020-12-29 17:54] VITALS: BP 142/50
[2020-12-29 18:40] LABS: BILIRUBIN,URINE NEG (NEG); CLARITY,URINE CLEAR; COLOR,URINE YELLOW; GLUCOSE,URINE NEG (NEG)
[2020-12-29 18:41] LABS: NITRITE,URINE NEG (NEG); RBC,URINE 0 /HPF (0-2); WBC,URINE 0 /HPF (0-4)
[2020-12-29 18:42] LABS: BACTERIA,URINE 0 /HPF (0-FEW)
== END 2020-12-29 17:54 | disposition home or self-care (01) ==
LOC: ER 14:34
DX: J44.1 Chronic obstructive pulmonary disease with (acute) exacerbation (principal); E78.5 Hyperlipidemia, unspecified; I10 Essential (primary) hypertension; F17.210 Nicotine dependence, cigarettes, uncomplicated; Z20.822 Contact with and (suspected) exposure to COVID-19
CPT/HCPCS: 71045; 80053; 81001; 82803; 83880; 84484; 85025; 85379; 87426; 93005; 96374; 99285; C9803; J2930; U0003

== ENCOUNTER → 2021-07-13 | Outpatient (CLI) | payer MEDICARE, OTHER ==
[~2021-07-13] MED LIST changes: +LEVO500T9 PO; +PRED50TA PO
--- NOTE | 2021-07-13 16:50 | RAD ---
XR FEET 2 VIEWS History: Reason: CHRONIC PAIN, MULTIPLE FALLS / Spl. Instructions: / History: Technique: 2 views bilateral feet. Comparison: None. Findings: Left foot: Moderate first MTP DJD. No dislocation. No acute fracture. Plantar calcaneal spur. Right foot: Postoperative changes first proximal phalanx and metatarsal. Moderate first MTP DJD. [employer] nestor deformity of the fifth proximal phalanx. No acute fracture. No dislocation. Plantar calcaneal spu r. Impression: 1. Moderate bilateral first MTP DJD. Electronically signed by: Vicente Concepcion DO (07/13/2021 4:47 PM) [id number]
--- NOTE | 2021-07-13 16:51 | RAD ---
XR KNEE 1-2 VIEWS History: Reason: CHRONIC PAIN, MULTIPLE FALLS / Spl. Instructions: / History: Technique: 2 views bilateral knees. Comparison: None. Findings: Left knee: No dislocation. No acute fracture. No significant knee joint effusion. Vascular calcificat ions. Right knee: No dislocation. No acute fracture. Mild right knee degenerative changes most prominent wi thin the medial compartment. No significant knee joint effusion. Vascular calcifications. Impression: 1. No acute osseous abnormality. Electronically signed by: Vicente Concepcion DO (07/13/2021 4:49 PM) [id number]
== END ==
LOC: RAD 14:49
PROVIDERS: ATTEND Physician Assistant
DX: M17.11 Unilateral primary osteoarthritis, right knee (principal); M19.071 Primary osteoarthritis, right ankle and foot; M19.072 Primary osteoarthritis, left ankle and foot; M77.31 Calcaneal spur, right foot; M21.6X1 Other acquired deformities of right foot; M25.562 Pain in left knee; Z98.890 Other specified postprocedural states
CPT/HCPCS: 73560-50; 73620-50